=== PATIENT | female | born 1940 | race Caucasian/White ===

== ENCOUNTER → 2016-05-18 | Outpatient (CLI) | payer MEDICARE ==
[~2016-05-18] MED LIST: ASPIRIN LO-DOSE81 MG PO; CO Q-10100 MG PO; FISH OIL1000 MG; GLUCOPHAGE1000 MG PO; GLUCOTROL XL2.5 MG PO; LEVOTHROID(SYN75 MCG PO; PRESERVISION A1 EAC1 PO; PRILOSEC20 M1 PO
[2016-05-18 16:35] LABS: BASOPHIL # 0.1 K/uL (0.0-0.2); BASOPHIL % 0.8 %; EOSINOPHIL # 0.6 K/uL (0.0-0.5); HEMATOCRIT 40.4 % (33.0-46.0); HEMOGLOBIN 13.2 g/dL (10.0-15.0); IMMATURE GRANULOCYTE % 0.5 %; LYMPHOCYTE # 2.1 K/uL (0.8-4.0); LYMPHOCYTE % 28.2 %; MCH 30.2 pg (27.0-34.0); MCHC 32.7 gm/dL (32.0-36.5); MCV 92.4 fl (83.0-98.0); MONOCYTE # 0.7 K/uL (0.0-1.0); MONOCYTE % 8.8 %; MPV 10.3 fl (9.4-12.4); NEUTROPHIL # (ANC) 4.1 K/uL (1.8-7.8); NEUTROPHIL % 53.7 %; NRBC % 0 /100WBC (0-0.00); PLATELET COUNT 230 K/uL (150-450); RBC 4.37 M/uL (3.50-5.50); RDW-CV 13.4 % (11.9-14.6); WBC 7.6 K/uL (4.0-11.0)
[2016-05-18 16:51] LABS: ALBUMIN 3.6 gm/dL (3.5-5.0); ANION GAP 14.4 (10.0-19.0); PHOSPHORUS 2.9 mg/dL (2.5-4.9); POTASSIUM 4.4 mMol/L (3.7-5.1)
== END | disposition disaster alternative care site (69) ==
LOC: LCNC 16:15
PROVIDERS: Internal Medicine Interventional Cardiology
DX: I48.92 Unspecified atrial flutter (principal); Z79.899 Other long term (current) drug therapy

== ENCOUNTER → 2016-07-13 | Outpatient (CLI) | payer MEDICARE | LOC: LCNC 16:31 | DX: E03.9 Hypothyroidism, unspecified (principal) ==

== ENCOUNTER → 2016-11-16 | Outpatient (CLI) | payer MEDICARE ==
--- NOTE | ~2016-11-16 | PUL ---
PATIENT'S NAME: [facility] AGE: 76 Y [address] ROOM: [place] [id number] LOCATION: [facility] ADMIT DATE: 11/16/2016 Pulmonary DISCHARGE DATE: FAMILY PHYSICIAN: Deborah Zamora MD ATTENDING PHYSICIAN: Cm Aguirre NAME OF PROCEDURE: Pulmonary Function Test DATE OF PROCEDURE: November 16, 2016 TECH: DRAKE Bray REASON FOR EXAM: Shortness of breath PROCEDURES PERFORMED: Spirometry with bronchodilator assessment. Measurement of maximum voluntary ventilation. Measurement of lung volumes. Measurement of diffusing capacity. RESULTS: Spirometry pre bronchodilator FVC was 2.24 liters, 86% of predicted; post bronchodilator FVC was 2.18 liters, 84% of predicted. Pre bronchodilator FEV1 was 1.67 liters, 86% of predicted; post-bronchodilator FEV1 was 1.77 liters, 91% of predicted. FEV1/FVC was 75% , 100% of predicted. FEF 25-75% was 1.28 liters/second, 85% of predicted. Maximum voluntary ventilation was 73 liters, 93% of predicted. This data did not improve significantly following inhaled bronchodilator. Lung volumes showed total lung capacity was 4.24 liters, 93% of predicted. The FRC was 2.27 liters, 95% of predicted. Residual volume was 1.86 liters, 97% of predicted. Diffusing capacity not adjusted for hemoglobin was 51%. Single breath alveolar volume was 3.31 liters, which is a marginal estimate of the total lung capacity. The flow volume loop pattern was normal. PHYSICIAN INTERPRETATION: The above data and corresponding so volume curves are most compatible with normal pulmonary function, with normal lung volumes with moderate gas transfer impalement. Isolated reduction in DLCO could be secondary to smoking, anemia ,pulmonary vascular diseases etc ; clinical correlation is recommended. SHADIA BRYANT MD MG/ks [facility]: [facility] AGE: 76 Y [address] ROOM: [place] [id number] LOCATION: [facility] ADMIT DATE: 11/16/2016 Pulmonary DISCHARGE DATE: FAMILY PHYSICIAN: Deborah Zamora MD ATTENDING PHYSICIAN: Cm Aguirre /[id number] dtt: 11/18/16 1744 , SHADIA BRYANT dtd: 11/18/16 1029
== END | disposition disaster alternative care site (69) ==
LOC: GRTH 11-15 07:00
DX: R06.02 Shortness of breath (principal)